=== PATIENT | female | born 1975 | race Caucasian/White ===

== ENCOUNTER 2018-12-25 17:04 | Inpatient (IN) | payer OTHER ==
[2018-12-25] MEDS ORDERED: ONDANSETRON 4 MG/2 ML VIAL IVP PRN (19:18)
[2018-12-25] MEDS ORDERED: ONDANSETRON DISINTEGRATING 4 MG TAB PO PRN (19:18)
[2018-12-25] MEDS ORDERED: ACETAMINOPHEN 325 MG TAB PO PRN (19:18)
[2018-12-25] MEDS ORDERED: D50W 25 GM/50 ML SYR IVP PRN (19:49)
[2018-12-25] MEDS ORDERED: INSULIN REGULAR HUMAN 100 UNIT in NS 100 ML IV SCH (20:00)
--- NOTE | 2018-12-25 20:47 | GHP ---
[f rep st] HISTORY AND PHYSICAL DATE OF ADMISSION: 12/25/2018 CHIEF COMPLAINT: DKA. HISTORY OF PRESENT ILLNESS: A 43-year-old female with type 1 diabetes diagnosed September 2015, transferred per her request from [place] with DKA. She woke this morning with nausea, vomiting, and 2 episodes of diarrhea. Mild myalgias and headache today. No fevers, chills, or sweats. No cough or URI symptoms. No dysuria. No rash. No ill contacts. She had the exact same presentation in November at [facility]. At that time, no infectious source was identified. She had 2 glasses of wine last night, which is not unusual for her. She has been eating out more since they are remodeling their kitchen. She has an insulin pump that has been working fine. Her average sugars are 171. She does bolus herself. Has been taking Invokana for the past year, which can cause ketoacidosis. She checked her urine at home and it is positive for ketones; thus, she did not take this morning. Labs at [place] today: Glucose 250, carbon dioxide 6, anion gap 25. VBG pH 37.13, CO2 of 21. She was started on an insulin drip and transferred here to [facility]. REVIEW OF SYSTEMS: I completed a 10-point review of systems, negative except in HPI. PAST MEDICAL HISTORY: Type 1 diabetes, on insulin pump, anxiety, hypertension, ADHD, hypothyroidism. PAST SURGICAL HISTORY: On her arm left cyst removal, left hysterectomy. SOCIAL HISTORY: She is , lives in [place]. Drinks 2 glasses of wine a night. 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 FAMILY HISTORY: Paternal side with diabetes. Father with emphysema. MEDICATIONS: Invokana 300 mg daily, lisinopril 10 mg daily, levothyroxine, Lexapro 10 mg daily, Adderall 25 mg daily, NovoLog. ALLERGIES: None. PHYSICAL EXAMINATION: VITAL SIGNS: Temperature 36.9, blood pressure 127/65, heart rate 99, respiration 14, 100% on room air. GENERAL: Fatigue, but no acute distress. HEENT: PERRLA. Mildly dry mucous membranes. CV: Regular rate and rhythm. LUNGS: Clear. ABDOMEN: Soft. Mild tenderness but no rebound or guarding. Positive bowel sounds. : No Sheikh. No suprapubic tenderness. MUSCULOSKELETAL: 5/5 upper and lower extremity strength. NEURO: 2-12 intact. PSYCH: Alert and oriented x3. LABORATORY DATA: From [place]: UA: Plus protein, plus glucose, positive ketones. Sodium 136, potassium 4.8, chloride 105, carbon dioxide 6, BUN 26, creatinine is 1, glucose 250. Anion gap 25. VBG: pH 7.13, CO2 of 21. WBC 12 hb 12, Hct 44 ASSESSMENT AND PLAN: 1. Diabetic ketoacidosis: Denies infectious symptoms. Urinalysis is normal. She had a similar episode in November and also a year ago. Invokana might be contributing. We will check serial labs. Insulin drip. Transition to home insulin pump once gap closes. 2. Anion gap metabolic acidosis: Secondary to diabetic ketoacidosis. Aggressive treatment with IV fluids and insulin drip. 3. Mild acute kidney injury: Secondary to nausea, vomiting, diarrhea. Hydrate. Repeat in the morning. 4. Hypothyroidism: Levothyroxine. 5. Hypertension: Lisinopril. 6. Anxiety: Lexapro. 7. Attention deficit hyperactivity disorder: Adderall. 8. Leukocytosis: denies infectious sxs, UA negative. Dry on exam. IVFs, repeat in morning 9. Diet: N.p.o. 10. Deep venous thrombosis prophylaxis: Lovenox. DISPOSITION: Observation admission given acute DKA, metabolic acidosis requiring IV fluids and insulin. /[id number]/MODL MTDD
[2018-12-25] MEDS: LEVOTHYROXINE 175 MCG TAB PO SCH (21:22)
[2018-12-26] MEDS ORDERED: D10W 1,000 ML IV ONE (01:08)
[2018-12-26] MEDS ORDERED: NS 1,000 ML IV ONE (02:09)
[2018-12-26] MEDS ORDERED: POTASSIUM Cl (KCl) 50 ML IV ONE ×2 (09:45)
[2018-12-26] MEDS: PANTOPRAZOLE SODIUM 40 MG TAB PO SCH (10:05)
[2018-12-26] MEDS: ESCITALOPRAM OXALATE 10 MG TAB PO SCH (10:05)
[2018-12-26] MEDS: ENOXAPARIN 40 MG/0.4 ML SYR SC SCH (10:05)
[2018-12-26] MEDS: LISINOPRIL 10 MG TAB PO SCH (10:06)
--- NOTE | 2018-12-26 10:14 | GOP ---
[f rep st] OPERATIVE REPORT DATE OF OPERATION: 12/25/2018 SURGEON: Marti Chou MD ANESTHESIA: Local with lidocaine. PREOPERATIVE DIAGNOSIS: Diabetic ketoacidosis with poor intravenous access. POSTOPERATIVE DIAGNOSIS: Diabetic ketoacidosis with poor intravenous access. PROCEDURE PERFORMED: Right ultrasound-guided internal jugular triple-lumen catheter placement. FINDINGS: No unusual findings. SPECIMENS: None. ESTIMATED BLOOD LOSS: 5 cc. INDICATIONS: The patient is a 43-year-old woman who [facility] the [facility]. She needs tri ple-lumen for optimal IV access. DESCRIPTION OF PROCEDURE: Patient was brought in the ICU. Consent obtained. Time-out performed. H er right neck was prepped and draped in the usual sterile fashion. I infiltrated the area on her nec k with 5 cc of 1% lidocaine. She was in the Trendelenburg position. Under ultrasound guidance, the right internal jugular vein was fully compressible. I accessed it on the 1st attempt with a large-jabier re needle with dark return of blood flow. I threaded the guidewire and removed the needle. I made a small caitie at the skin and performed a dilation. Using the Seldinger technique, I removed the dilat or over the wire. I then placed the triple-lumen catheter, which I had flushed with saline, over the wire, and I removed the wire. Each lumen withdrew blood easily and was flushed with saline. The tr iple-lumen catheter was sewn into place. A sterile dressing was applied. Chest x-ray is pending. S he tolerated the procedure well. /[id number]/MODL
[2018-12-26] MEDS ORDERED: POTASSIUM Cl (KCl) 20 MEQ/50 ML BAG IV ONE (10:15)
--- NOTE | 2018-12-26 10:55 | HOSPPROG ---
Hospitalist Progress Note Assessment/Plan: # DKA - severe on presentation, gap closed - ddx: Invokana, Adderall? - will transition to home glucose pump and monitor for 24 hours # DM1 - recent dx - check CT to r/o infiltrative pancreatic process # htn - hold lisino # hypothyroid - synthroid Subjective: feeling much better; gap closed Objective: Vital Signs Temp Pulse Resp BP Pulse Ox 36.8 C 80 15 101/77 98 12/26/18 08:00 12/26/18 08:00 12/26/18 08:00 12/26/18 08:00 12/26/18 08:00 Laboratory Results 12/26/18 06:10 12/26/18 08:20 12/25/18 12/26/18 12/27/18 05:59 05:59 05:59 Intake Total 4547.3 Output Total 1600 Balance 2947.3 chart reviewed CXR personally reviewed - Physical Exam Constitutional: no apparent distress, appears nourished Cardiovascular: regular rate and rhythym, no murmur, rub, or gallop Respiratory: no respiratory distress, no rales or rhonchi, clear to auscultation Gastrointestinal: normoactive bowel sounds, soft, non-tender abdomen, no palpable masses ICD10 Worksheet Patient Problems: Problems Problem Status Onset DKA (diabetic ketoacidoses) Acute
[2018-12-26] MEDS ORDERED: INSULIN PUMP, PATIENT OWN 1 EA MISC SCH (11:00)
[2018-12-26] MEDS: DEXTROAMP AMPHET PO SCH (11:30)
--- NOTE | 2018-12-26 12:06 | ASMTCMCOM ---
CM Note CM Note Notes: Patient admitted for DKA. Fortunately, her anion gap has closed, and she will be observed for 24 hours on her home medication regimen (insulin pump). Patient is normally independent, lives w and is employed. No d/c needs identified. Current CM Discharge plan: home Date Signed: 12/26/2018 12:05 PM Electronically Signed By:Leyla Wellington RN
[2018-12-26] MEDS ORDERED: PNEUMOCOCCAL 0.5ML VACCINE VIAL (PNEUMOVAX 23) IM ONE (12:26)
--- NOTE | 2018-12-26 16:33 | PDMN ---
Medical Necessity Medical necessity: Change to inpt as of 12/26/18 @ 10:40, meets inpt criteria per MD order and MCG M-130, Diabetes. 43 y/o w/DM type 1 diagnosed 09/2015 admitted w/diabetic ketoacidosis, anion gap metabolic acidosis sec to N/V/D. Upgraded to inpt for further monitoring for 24 hrs as pt transitions to home glucose pump, check CT to r/o infiltrative pancreatic process. Other PMH includes anxiety, HTN, ADHD, and hypothyroidism. Est LOS>2MN for ongoing management of above.
[2018-12-26] MEDS ORDERED: IOPAMIDOL (ISOVUE-300) 100 ML BTL ONE (17:49)
[2018-12-26] MEDS: LEVOTHYROXINE 175 MCG TAB PO SCH (21:26)
[2018-12-27 09:08] VITALS: BP 118/73
[2018-12-27] MEDS: PANTOPRAZOLE SODIUM 40 MG TAB PO SCH (09:17)
[2018-12-27] MEDS: LISINOPRIL 10 MG TAB PO SCH (09:18)
[2018-12-27] MEDS: ESCITALOPRAM OXALATE 10 MG TAB PO SCH (09:18)
[2018-12-27] MEDS: ENOXAPARIN 40 MG/0.4 ML SYR SC SCH (09:18)
[2018-12-27] MEDS: DEXTROAMP AMPHET PO SCH (09:21)
--- NOTE | 2018-12-27 20:47 | GDS ---
[f rep st] DISCHARGE SUMMARY DISCHARGE DIAGNOSES: 1. Severe diabetic ketoacidosis. 2. Diabetes mellitus type 1. 3. Hypertension. 4. Hypothyroid. 5. Ovarian tumor seen on imaging. HOSPITAL COURSE: This is a 43-year-old female, who has a relatively recent diagnosis of diabetes emmanuel litus type 1, who presented in DKA. Exact etiology is somewhat unclear, although she is on Invokana, which can precipitate DKA. I recommend that she discontinue this. She was treated with intravenous insulin following her electrolytes closely as well as aggressive hydration. She has recovered signi ficantly. She was replaced on her home glucose pump and has had actually mildly low blood sugars ove rnight. We made a slight adjustment for her 2 a.m. basal rate to decrease that from 1.2 down to 1 to address this. Otherwise, imaging of her abdomen looking for reasons why she should have a new diagnosis of DKA was unrevealing in terms of the pancreas. However, an approximately 8 cm ovarian lesion was identified. Ultrasound characterizes this as a complex cystic lesion with several septations but no evidence of nodularity. I have given her a referral to see gynecologic oncology surgeons at the [facility] and recommend that she follow up relatively soon for this. She is given all this information. DISPOSITION: She is discharged home in stable condition. FOLLOWUP: 1. Gynecology/oncology as above. 2. Her local reverberatory furnace operator for management of her diabetes within 1 week. BILLING: I spent more than 30 minutes on the day of discharge coordinating care. /[id number]/MODL
== END 2018-12-27 11:55 | disposition home or self-care (01) | DRG 639 ==
LOC: F2N 18:47 → OBSVTOIN 12-26 10:40 → F2N 12-26 16:23
PROVIDERS: ADMIT Internal Medicine; ATTEND Internal Medicine
PROC: 02H633Z Insertion of Infusion Device into Right Atrium, Percutaneous Approach (ICD-10-PCS; principal; 2018-12-25)
DX: E10.10 Type 1 diabetes mellitus with ketoacidosis without coma (principal); Z96.41 Presence of insulin pump (external) (internal); I10 Essential (primary) hypertension; E03.9 Hypothyroidism, unspecified; N83.292 Other ovarian cyst, left side; F90.9 Attention-deficit hyperactivity disorder, unspecified type; F41.9 Anxiety disorder, unspecified
CPT/HCPCS: 82435-PO; 82565-PO; 82947-PO; 84132-PO; 84295-PO; 84520-PO; 85014-ER; G0009; G0378; J1650; J1815; J3480; Q9967

== ENCOUNTER → 2019-03-04 | Outpatient (CLI) | payer OTHER | LOC: CIMAGING 10:09 | PROVIDERS: ATTEND Family Medicine | DX: Z12.31 Encounter for screening mammogram for malignant neoplasm of breast (principal); N83.202 Unspecified ovarian cyst, left side; Z90.710 Acquired absence of both cervix and uterus; Z80.3 Family history of malignant neoplasm of breast | CPT/HCPCS: 76856-PO ==

== ENCOUNTER → 2019-03-30 | Outpatient (CLI) | payer OTHER | LOC: EMCIMAGING 08:53 ==

== ENCOUNTER 2019-04-16 12:02 | Day surgery (SDC) | payer OTHER | END 2019-04-16 19:48 | disposition home or self-care (01) | LOC: FSGY 12:02 ==